=== PATIENT | male | born 1945 | race African-American/Black ===

== ENCOUNTER 2016-10-31 12:41 | Inpatient (IN) | payer OTHER ==
[~2016-10-31] VITALS: Ht 180.3 cm; Wt 122.5 kg
--- NOTE | ~2016-10-31 | EKG ---
[address] [place] [address] ELECTROCARDIOGRAM REPORT Name: YUMIKO SANTORO Room #: 303-P ADM IN M.R.#: [id number] Admission: 10/31/16 Attend Phys: Law Tamayo MD Discharge: Date of : 43 Report #: [id number] THIS REPORT FOR: //name// [facility] Test Date: 2016-11-01 Test Time: 17:55:49 Pat Name: YUMIKO SANTORO Department: Room: 303 P Gender: M Vice President Of Compliance: JOSE : 1945 Requested By: Law Tamayo Order Number: [id number] MD: Sachin Lockhart Measurements Intervals [place] Rate: 127 P: -16 GA: 127 QRS: -40 QRSD: 89 T: 65 QT: 340 QTc: 495 Interpretive Statements Probable atrial flutter with 2-1 AV conduction Abnormal R-wave progression, late transition Nonspecific ST and T wave abnormality Baseline wander in lead(s) I,II,aVR,V6 No previous ECGs available for comparison Electronically Signed On 11-02-2016 13:53:39 CDT by Sachin Lockhart [email or web address] <ELECTRONICALLY SIGNED> By: Sachin Lockhart MD, [facility] 11/02/16 1353 1755 1755 Sachin Lockhart MD, [facility] /EPI
--- NOTE | ~2016-10-31 | HC ---
[facility] [place] [address] CONSULTATION Name: YUMIKO SANTORO Room #: 303-P [facility] IN .R.#: [id number] Admission: 10/31/16 Attend Phys: Law Tamayo MD Discharge: 11/03/16 Date of : 43 Report #: [id number] THIS REPORT FOR: //name// CC: Maykel Tamayo REASON FOR CONSULTATION: Atrial flutter. HISTORY OF PRESENT ILLNESS: The patient is a 71-year-old gentleman with a history of coronary disease with remote stenting. He has a history of brain tumor with prior radiation therapy, hypertension and prior strokes. He is confined predominantly to a wheelchair. He had eater breakfast yesterday when his daughter noted a heart rate in the 120 range. She gave him a nitroglycerin, it is not clear if this did any thinning. He has had intermittent left-sided chest discomfort that will last for a minute or two, this may be related to or associated with a high ventricular response. He denies orthopnea or paroxysmal nocturnal dyspnea. Typically, sees Dr. Lopes at for his cardiology needs. He has been maintained on warfarin presumably for his history of atrial dysrhythmias. No history of near syncope or syncope. We should note that there are notes that suggest that the patient has had recent hemoptysis. ALLERGIES: Allergic to STATIN medicines. MEDICATIONS: Include warfarin 5 mg daily, colchicine, Zetia 10 mg daily, amlodipine 2.5 mg daily, allopurinol 100 mg daily, metformin 500 mg twice daily, Welchol 3 tablets twice daily, fenofibrate and prednisone. PAST MEDICAL HISTORY: Medical records have been reviewed and include history of coronary disease with remote stenting, brain tumor, hypertension, dyslipidemia, diabetes. SOCIAL HISTORY: He has never been a smoker, nondrinker. FAMILY HISTORY: Unremarkable for premature coronary disease. REVIEW OF SYSTEMS: All systems negative except as that noted above. PHYSICAL EXAMINATION: GENERAL: A pleasant gentleman who is alert. VITAL SIGNS: Blood pressure is 150/108, heart rate of 110 and irregular, temperature is 99.1 degrees, weight is 270 pounds, 5 feet 11 inches tall. HEENT: There are neither xanthelasma, subcutaneous xanthomata, oral mucosal or digital cyanosis or kyphoscoliosis present. CHEST: Clear to auscultation and percussion. CARDIOVASCULAR: An irregularly irregular rhythm with normal S1, S2. ABDOMEN: Soft and nontender. [facility] [address] [place] [address] CONSULTATION Name: YUMIKO SANTORO Room #: 303-P [facility] IN .R.#: [id number] Admission: 10/31/16 Attend Phys: Law Tamayo MD Discharge: 11/03/16 Date of : 43 Report #: [id number] EXTREMITIES: With trace to 1+ edema. Radial pulses are 2+. NEUROLOGIC: Alert with focal weakness. LABORATORY DATA: EKG, atrial flutter with 2:1 AV condition, otherwise acute ST or T-wave changes. Sodium 142, creatinine 1.0. Troponin 0.10. Troponins have remained minimally but nondiagnostically elevated. Magnesium 1.4. INR 2.2. Hemoglobin 12, white count 6.0, platelet count 110. IMPRESSION: 1. Chest pain, possibly related to atrial flutter with a rapid ventricular response in the setting of aspiration pneumonia. 2. Atrial flutter. 3. History of aspiration, community acquired pneumonia. 4. Coronary disease with remote stenting. 5. Hypertension. 6. Brain tumor, malignant with prior radiation therapy. 7. Hypercoagulable. 8. Prior stroke. RECOMMENDATIONS: 1. Advance lisinopril for blood pressure. 2. Change amlodipine to Cardizem for added heart rate control. 3. Clarify details regarding brain tumor diagnosis and prior treatment. 4. At this point, I would recommend medical therapy for possible underlying coronary artery disease until the above-noted issues can be sorted out. My suspicious is that his intermittent chest discomfort is not related to angina or unstable ischemic type symptomatology. <ELECTRONICALLY SIGNED> By: Sachin Lockhart MD, [facility] 11/04/16 0842 1025 1137 Scahin Lockhart MD, [facility] /nt
--- NOTE | ~2016-10-31 | EKG ---
[place] [address] [place] [address] ELECTROCARDIOGRAM REPORT Name: YUMIKO SANTORO Room #: 303-P ADM IN M.R.#: [id number] Admission: 10/31/16 Attend Phys: Law Tamayo MD Discharge: Date of : 43 Report #: [id number] THIS REPORT FOR: //name// [facility] ED Test Date: 2016-10-31 Test Time: 12:46:33 Pat Name: YUMIKO SANTORO Department: Room: 303 Gender: M Business Support Assistant: JOSE CARLOS : 1945 Requested By: Joaquín Reeder Order Number: [id number] MD: Sachin Lockhart Measurements Intervals [place] Rate: 55 P: 1 CT: 208 QRS: 5 QRSD: 95 T: 252 QT: 423 QTc: 405 Interpretive Statements Sinus rhythm Atrial premature complexes Probable LVH with secondary repol abnrm Nonspecific ST and T wave abnormality Compared to ECG 08/05/2009 17:26:33 Atrial premature complex(es) now present Nonspecific change in the ST and T-wave segments Electronically Signed On 11-01-2016 9:50:53 CDT by Sachin Lockhart [email or web address] <ELECTRONICALLY SIGNED> By: Sachin Lockhart MD, [facility] 11/01/16 0950 1246 1246 Sachin Lockhart MD, [facility] /EPI
[~2016-10-31 12:41] MED LIST: ALLOPURINOL 10100 M1 PO; COLCHICINE 0.60.6 M1 PO; COUMADIN 5 MG TA5 M1 PO; DAILY VALUE1 EACH PO; EZETIMIBE PO; FISHOIL PO; GLUCOPHAGE500 MG PO; HYZAAR 100-251 EACH PO; MELATONIN5 M2; NORVASC 2.5 MG2.5 M1 PO; PREDNISONE 10 M10 M1; TRICOR48 MG PO; WELCHOL 625 MG625 MG PO
[2016-10-31 12:42] VITALS: BP 115/77
[2016-10-31 13:25] LABS: ABSOLUTE NEUTROPHILS 3.6 thou/uL (1.4-8.2); BASOPHILS 0.3 % (0.0-2.0); HEMATOCRIT 37.3 % (42.0-52.0); LYMPHOCYTES 24.3 % (24.0-44.0); MCH 27.6 pg (26.0-34.0); MCHC 32.2 g/dL (28.0-37.0); MCV 85.9 fL (80.0-100.0); MONOCYTES 4.7 % (1.0-8.0); PLATELET COUNT 114 thou/uL (150-400); POLYS 69.7 % (36.0-66.0); RBC 4.35 mil/uL (4.50-6.00); RDW 17.1 % (10.5-14.5); WBC 5.2 thou/uL (4.0-11.0)
[2016-10-31 13:26] LABS: MANUAL DIFF NO
[2016-10-31 13:38] LABS: PROTIME 19.9 Seconds (9.3-11.4)
[2016-10-31 13:46] LABS: ANION GAP 5 mmol/L (7-16); BUN 22 mg/dL (7-18); CHLORIDE 105 mmol/L (98-107); CO2 34 mmol/L (21-32); GLUCOSE 126 mg/dL (74-106); MAGNESIUM 1.7 mg/dL (1.8-2.4); SODIUM 144 mmol/L (136-145); TROPONIN-I < 0.04 ng/mL (<0.04-0.07)
[2016-10-31] MEDS ORDERED: TOPROL XL100 MG PO (14:00)
[2016-10-31] MEDS ORDERED: CARDURA4 MG PO (14:01)
[2016-10-31] MEDS ORDERED: VITAMIN D1000 UNI1 PO (14:01)
[2016-10-31] MEDS ORDERED: LISINOPRIL20 MG PO (14:02)
[2016-10-31] MEDS ORDERED: PROSCAR 5MG TABL5 M1 PO (14:03)
[2016-10-31] MEDS ORDERED: COUMADIN 5 MG TA5 M1 PO (14:03)
[2016-10-31] MEDS ORDERED: COLACE100 MG PO (14:04)
[2016-10-31] MEDS ORDERED: LASIX 20 MG TAB20 MG PO (14:05)
[2016-10-31 15:47] VITALS: BP 115/77
[2016-10-31 17:15] VITALS: BP 134/86
[2016-10-31 17:45] VITALS: BP 153/101
[2016-10-31 19:30] VITALS: BP 164/89
[2016-10-31 23:35] VITALS: BP 142/99
[2016-11-01 03:50] VITALS: BP 160/107
[2016-11-01 04:26] LABS: CALCIUM 9.1 mg/dL (8.5-10.1); CREATININE 0.9 mg/dL (0.7-1.3); MAGNESIUM 1.6 mg/dL (1.8-2.4); POTASSIUM 4.4 mmol/L (3.5-5.1)
[2016-11-01 04:29] LABS: ABSOLUTE NEUTROPHILS 3.7 thou/uL (1.4-8.2); BASOPHILS 0.3 % (0.0-2.0); HEMATOCRIT 36.7 % (42.0-52.0); MCHC 32.6 g/dL (28.0-37.0); MCV 85.9 fL (80.0-100.0); MONOCYTES 6.6 % (1.0-8.0); PLATELET COUNT 110 thou/uL (150-400); POLYS 62.1 % (36.0-66.0); RBC 4.27 mil/uL (4.50-6.00)
[2016-11-01 04:31] LABS: MANUAL DIFF NO
[2016-11-01 05:10] VITALS: BP 163/103
[2016-11-01 08:00] VITALS: BP 159/91
[2016-11-01 11:31] LABS: URINE BILIRUBIN NEGATIVE (Negative); URINE BLOOD NEGATIVE (Negative); URINE COLOR YELLOW; URINE GLUCOSE-RANDOM* NEGATIVE (Negative); URINE KETONES NEGATIVE (Negative); URINE LEUKOCYTES-REFLEX NEGATIVE (Negative); URINE PROTEIN (DIPSTICK) 1+ (Negative); URINE SPECIFIC GRAVITY 1.015 (1.003-1.035)
[2016-11-01 11:43] LABS: CASTS None Seen /LPF (None Seen); CRYSTALS None Seen /LPF (None Seen); SQUAMOUS 0-3 Few /LPF (0-3); URINE RBC None Seen /HPF (0-2); URINE WBC-REFLEX None Seen /HPF (0-5)
[2016-11-01 14:38] LABS: INR 2.2; PROTIME 22.1 Seconds (9.3-11.4)
[2016-11-01 16:00] VITALS: BP 144/80
[2016-11-01 18:25] LABS: CALCIUM 9.1 mg/dL (8.5-10.1); POTASSIUM 4.2 mmol/L (3.5-5.1)
[2016-11-01 18:26] LABS: MAGNESIUM 1.5 mg/dL (1.8-2.4)
[2016-11-01 18:34] LABS: TROPONIN-I 0.05 ng/mL (<0.04-0.07)
[2016-11-01 19:05] VITALS: BP 150/89
[2016-11-02 00:41] LABS: MAGNESIUM 1.5 mg/dL (1.8-2.4); TROPONIN-I 0.1 ng/mL (<0.04-0.07)
[2016-11-02 04:00] VITALS: BP 171/121
[2016-11-02] MEDS ORDERED: ALL DAY ALLERGY10 M2 PO (07:36)
[2016-11-02 08:10] VITALS: BP 150/108
[2016-11-02 11:55] LABS: INR 2.1; PROTIME 21.5 Seconds (9.3-11.4)
[2016-11-02 12:04] VITALS: BP 118/83
[2016-11-02 13:33] VITALS: BP 118/83
[2016-11-02 15:10] VITALS: BP 102/63
[2016-11-02 19:11] VITALS: BP 103/62
[2016-11-03 04:08] VITALS: BP 138/92
[2016-11-03 04:42] LABS: HEMATOCRIT 39.2 % (42.0-52.0); HEMOGLOBIN 12.3 gm/dL (14.0-18.0); MCH 27.4 pg (26.0-34.0); MCHC 31.4 g/dL (28.0-37.0); MCV 87.2 fL (80.0-100.0); RBC 4.49 mil/uL (4.50-6.00); WBC 6.9 thou/uL (4.0-11.0)
[2016-11-03 04:53] LABS: INR 1.9
[2016-11-03 05:00] LABS: CALCIUM 9.1 mg/dL (8.5-10.1); CREATININE 1.2 mg/dL (0.7-1.3); POTASSIUM 4.3 mmol/L (3.5-5.1)
[2016-11-03 08:00] VITALS: BP 123/75
[2016-11-03 16:00] VITALS: BP 125/65
[2016-11-03] MEDS ORDERED: AUGMENTIN 875875 MG PO (16:36)
[2016-11-03 16:39] VITALS: BP 125/65
[2016-11-03] MEDS ORDERED: CARDIZEM CD180 MG PO (16:40)
[2016-11-03 17:00] VITALS: BP 125/65
== END 2016-11-03 20:12 | disposition home health service (06) | DRG 193 ==
LOC: ER 12:41 → 3N 15:33 → EROBS 15:33 → 3N 17:17
PROVIDERS: Emergency Medicine; Hospitalist; Nurse Practitioner; Nurse Practitioner Family
DX: J18.9 Pneumonia, unspecified organism (principal); I50.33 Acute on chronic diastolic (congestive) heart failure; I48.92 Unspecified atrial flutter; D68.59 Other primary thrombophilia; I10 Essential (primary) hypertension; E78.00 Pure hypercholesterolemia, unspecified; I25.10 Atherosclerotic heart disease of native coronary artery without angina pectoris; E78.5 Hyperlipidemia, unspecified; I48.0 Paroxysmal atrial fibrillation; E83.42 Hypomagnesemia; Z86.73 Personal history of transient ischemic attack (TIA), and cerebral infarction without residual deficits; Z88.8 Allergy status to other drugs, medicaments and biological substances; Z95.5 Presence of coronary angioplasty implant and graft
CPT/HCPCS: 10096

== ENCOUNTER 2019-01-01 13:35 | Inpatient (IN) | payer OTHER ==
[2019-01-01] VITALS (9 sets, daily range): BP systolic 118–224; BP diastolic 72–135
[~2019-01-01] VITALS: Ht 180.3 cm; Wt 112.7 kg
[~2019-01-01 13:35] MED LIST changes: +ALL DAY ALLERGY10 M2 PO; +AUGMENTIN 875875 MG PO; +CARDIZEM CD180 MG PO; +CARDURA4 MG PO; +COLACE100 MG PO; +FISH OIL 1,001000 M2 PO; -FISHOIL PO; +LASIX 20 MG TAB20 MG PO; +LISINOPRIL20 MG PO; +PROSCAR 5MG TABL5 M1 PO; +TOPROL XL100 MG PO; +VITAMIN D1000 UNI1 PO; +VITAMIN D2000 UNIT PO
[2019-01-01 14:48] LABS: BASOPHILS 0.3 % (0.0-2.0); EOSINOPHILS 0.2 % (0.0-3.0); HEMATOCRIT 37.2 % (42.0-52.0); HEMOGLOBIN 11.8 gm/dL (14.0-18.0); LYMPHOCYTES 19.4 % (24.0-44.0); MCH 27.4 pg (26.0-34.0); MCHC 31.7 g/dL (28.0-37.0); MCV 86.5 fL (80.0-100.0); MONOCYTES 7.3 % (1.0-8.0); PLATELET COUNT 192 thou/uL (150-400); POLYS 72.8 % (36.0-66.0); RDW 15.7 % (10.5-14.5); WBC 8.3 thou/uL (4.0-11.0)
[2019-01-01 14:52] LABS: URINE BILIRUBIN NEGATIVE (Negative); URINE BLOOD TRACE (Negative); URINE CLARITY CLEAR; URINE COLOR YELLOW; URINE GLUCOSE-RANDOM* NEGATIVE (Negative); URINE KETONES NEGATIVE (Negative); URINE LEUKOCYTES-REFLEX NEGATIVE (Negative); URINE NITRITE-REFLEX NEGATIVE (Negative); URINE PROTEIN (DIPSTICK) 2+ (Negative); URINE SPECIFIC GRAVITY 1.025 (1.005-1.035)
[2019-01-01 14:58] LABS: ANION GAP 5 mmol/L (7-16); BUN 16 mg/dL (7-18); CALCIUM 9.2 mg/dL (8.5-10.1); CHLORIDE 102 mmol/L (98-107); CO2 34 mmol/L (21-32); CREATININE 0.9 mg/dL (0.7-1.3); GLUCOSE 105 mg/dL (74-106); SODIUM 141 mmol/L (136-145)
[2019-01-01 15:03] LABS: BACTERIA-REFLEX None Seen /HPF (None Seen); CRYSTALS None Seen /LPF (None Seen); HYALINE CASTS 4-10 Moderate /LPF (None Seen); MUCUS >6 Heavy strn/LPF (None Seen); SQUAMOUS 0-3 Few /LPF (0-3); URINE RBC 0-2 Rare /HPF (0-2); URINE WBC-REFLEX 0-5 Rare /HPF (0-5)
[2019-01-01 15:09] LABS: ALBUMIN 3.3 g/dL (3.4-5.0); DIRECT BILIRUBIN 0.2 mg/dL (<0.1-0.3); SGOT 21 U/L (15-37); SGPT 21 U/L (30-65); TOTAL BILIRUBIN 0.8 mg/dL (<0.1-1.0); TOTAL PROTEIN 8.6 g/dL (6.4-8.2); TROPONIN-I <0.06 ng/mL (<0.06)
[2019-01-01 15:44] LABS: BE(vivo) 3.3 mmol/L (-2 to +3); PCO2 48.5 mmHg (35.0-45.0); PO2 67.3 mmHg (80.0-100.0); pH 7.394 (7.360-7.450); sO2 93.1 % (92.0-98.0)
[2019-01-01 17:39] LABS: INR 2.6; PROTIME 27.3 Seconds (9.3-11.4)
[2019-01-01] MEDS ORDERED: COLACE100 MG PO (18:42)
[2019-01-01 20:22] LABS: ALBUMIN 3.4 g/dL (3.4-5.0); TOTAL PROTEIN 8.7 g/dL (6.4-8.2)
[2019-01-01] MEDS ORDERED: LIPITOR10 MG PO (20:41)
[2019-01-01] MEDS ORDERED: FLONASE 0.05%50 MCG NARES (20:41)
[2019-01-01 20:48] LABS: TSH 1.027 uIU/mL (0.358-3.740)
[2019-01-01 21:46] LABS: INR 2.5; PROTIME 26.3 Seconds (9.3-11.4)
[2019-01-02] VITALS (8 sets, daily range): BP systolic 95–157; BP diastolic 62–109
--- NOTE | 2019-01-02 02:59 | NUR ---
PT ADMITTED FROM ER. FAMILY AT BEDSIDE. PT EXTREMELY LETHERGIC AND WITHDRAWN. DENIES PAIN. PT HAD ELEVATED BP 224/125, HR >110. HEALTH CENTER MANAGER NOTIFIED. HYDRALAZINE, LOPRESSOR, TYLENOL GIVEN. PT DENIES CHEST PAIN, NAUSEA,AND VOMITING. FREQUEST BM MOVEMENTS, FOR SLIMMY MUCOUSY STOOL. PT ON ISOLATION FOR C-DIFF. PT IS CHAIRBOUND WITH LEFT SIDED WEAKNESS. FREQUENT URINATION AND ON LASIX. CONDOM CATHETER APPLIED. OUTPUT MONITORED. EDEMA IN THE LE WITH WEAK PULSE. PT DENIES NUMBNESS OR TINGLING.PT CURRENT PP 152/109. WILL CONTINUE TO FOLLOW POC
[2019-01-02 05:04] LABS: HEMATOCRIT 36.1 % (42.0-52.0); HEMOGLOBIN 11.4 gm/dL (14.0-18.0); MCH 27.4 pg (26.0-34.0); MCHC 31.5 g/dL (28.0-37.0); RBC 4.15 mil/uL (4.50-6.00); RDW 15.7 % (10.5-14.5); WBC 10.1 thou/uL (4.0-11.0)
[2019-01-02 05:06] LABS: INR 2.5; PROTIME 26.1 Seconds (9.3-11.4)
[2019-01-02 05:16] LABS: ANION GAP 7 mmol/L (7-16); BUN 14 mg/dL (7-18); CALCIUM 8.9 mg/dL (8.5-10.1); CHLORIDE 103 mmol/L (98-107); CHOLESTEROL 119 mg/dL (<200); CO2 34 mmol/L (21-32); CREATININE 0.8 mg/dL (0.7-1.3); GLUCOSE 110 mg/dL (74-106); HDL CHOLESTEROL 43 mg/dL (>40); LDL CHOLESTEROL 64 mg/dL (<100); MAGNESIUM 1.5 mg/dL (1.8-2.4); POTASSIUM 3.1 mmol/L (3.5-5.1); SODIUM 144 mmol/L (136-145); TC:HDL 2.8 Ratio (Not establshd); TRIGLYCERIDE 64 mg/dL (<150); VLDL 13 mg/dL (<40)
[2019-01-02 05:18] LABS: SERUM ASSESSMENT Clear
--- NOTE | 2019-01-02 17:55 | NUR ---
ASSUMED CARE AT 0700, SHIFT ASSESSMENT DONE, MEDS GIVEN, VSS. DENIES PAIN, NAUSEA, VOMITING. BED BOUND, RECEIVING IV ANTITBIOTICS. ON 4L NC. WILL CONTINUE TO ASSESS AND ASSIST WITH ADLs NEEDED.
[2019-01-03 00:56] VITALS: BP 102/72
[2019-01-03 03:28] VITALS: BP 113/69
[2019-01-03 05:48] LABS: HEMATOCRIT 32.9 % (42.0-52.0); HEMOGLOBIN 10.4 gm/dL (14.0-18.0); MCH 27.5 pg (26.0-34.0); MCHC 31.7 g/dL (28.0-37.0); MCV 86.9 fL (80.0-100.0); RBC 3.78 mil/uL (4.50-6.00); RDW 16.2 % (10.5-14.5); WBC 7.1 thou/uL (4.0-11.0)
[2019-01-03 05:56] LABS: INR 2.1; PROTIME 21.9 Seconds (9.3-11.4)
[2019-01-03 06:00] LABS: CALCIUM 8.4 mg/dL (8.5-10.1); CREATININE 1.1 mg/dL (0.7-1.3); MAGNESIUM 1.8 mg/dL (1.8-2.4); POTASSIUM 3.3 mmol/L (3.5-5.1)
[2019-01-03 07:37] VITALS: BP 123/85
--- NOTE | 2019-01-03 07:52 | NUR ---
PT PLEASANT WHOLE NIGHT. NO CHEST PAIN REPORTED. DENIES NAUSEA AND VOMITING. HAD 2 SOFT BOWEL MOVEMENTS. WILL CONTINUE TO MONITOR.
--- NOTE | 2019-01-03 09:39 | 2DMMODE ---
[facility] [address] [place] [address] 2 D/M-MODE ECHOCARDIOGRAM Name: YUMIKO SANTORO Room #: 217-P ADM IN M.R.#: [id number] Admission: 01/01/19 Attend Phys: Abran Day, Discharge: Date of : 43 Report #: [id number] THIS REPORT FOR: //name// APPROVED REPORT Study performed: 01/03/2019 08:24:11 EXAM: Comprehensive 2D, Doppler, and color-flow Echocardiogram Patient Location: Bedside Room #: 217 Status: routine BSA: 2.31 HR: 83 bpm BP: 113/69 mmHg Rhythm: Atrial Flutter Other Information Study Quality: Good Indications Congestive Heart Failure Dyspnea CAD Hypertension/HDD Atrial flutter 2D Dimensions RVDd: 42.18 mm IVSd: 17.66 (7-11mm) LVOT Diam: 22.24 (18-24mm) LVDd: 37.50 mm PWd: 15.85 (7-11mm) Ascending Ao: 36.03 (22-36mm) LVDs: 25.67 (25-40mm) Aortic Root: 34.60 mm IVC: 33.00 mm Volumes Left Atrial Volume (Systole) Single Plane 4CH: 134.16 mL Single Plane 2CH: 81.72 mL LA ESV Index: 49.00 mL/m2 Aortic Valve AoV Peak Gabriel.: 1.39 m/s AO Peak Gr.: 7.73 mmHg LVOT Max P.40 mmHg LVOT Max V: 1.36 m/s MONALISA Vmax: 3.80 cm2 [facility] [address] [place] [address] 2 D/M-MODE ECHOCARDIOGRAM Name: YUMIKO SANTORO Room #: 217-P [facility] IN [facility]#: [id number] Admission: 01/01/19 Attend Phys: Abran Day, Discharge: Date of : 43 Report #: [id number] Pulmonary Valve PV Peak Gabriel.: 1.02 m/s PV Peak Gr.: 4.24 mmHg Tricuspid Valve TR Peak Gabriel.: 2.93 m/s TR Peak Gr.: 34.45 mmHg PA Pressure: 49.00 mmHg Left Ventricle The left ventricle is normal size. There is normal LV segmental wall motion. Moderate concentric left ventricular hypertrophy. The left ventricular systolic function is normal. The left ventricular ejection fraction is within the normal range. LVEF is 60-65%. This study is not technically sufficient to allow evaluation of the LV diastolic function due to atrial flutter. Right Ventricle The right ventricle is normal size. The right ventricular systolic function is normal. Atria Left atrium is dilated. Right atrium is dilated. Aortic Valve Aortic valve is bicuspid. No aortic regurgitation is present. There is no aortic valvular stenosis. Mitral Valve The mitral valve is normal in structure. Mild mitral regurgitation. No evidence of mitral valve stenosis. Tricuspid Valve The tricuspid valve is normal in structure. There is mild tricuspid regurgitation. Estimated PAP 49 mmHg. There is moderate pulmonary hypertension. Pulmonic Valve The pulmonary valve is normal in structure. Trace pulmonic regurgitation. Great Vessels The aortic root is normal in size. The inferior vena cava is dilated with no inspiratory collapse. Pericardium There is no pericardial effusion. [facility] [address] [place] [address] 2 D/M-MODE ECHOCARDIOGRAM Name: YUMIKO SANTORO Room #: 217-P [facility] IN .R.#: [id number] Admission: 01/01/19 Attend Phys: Abran Day, Discharge: Date of : 43 Report #: [id number] <Conclusion> The left ventricle is normal size. LVEF is 60-65%. Left atrium is dilated. Right atrium is dilated. Aortic valve is bicuspid. No aortic regurgitation is present. There is no aortic valvular stenosis. The mitral valve is normal in structure. Mild mitral regurgitation. The tricuspid valve is normal in structure. There is mild tricuspid regurgitation. Estimated PAP 49 mmHg. There is moderate pulmonary hypertension. The pulmonary valve is normal in structure. Trace pulmonic regurgitation. There is no pericardial effusion. <ELECTRONICALLY SIGNED> By: Jb Lee MD 01/03/19 0939 8 Jb Lee MD /INF
--- NOTE | 2019-01-03 12:25 | NUR ---
ASSUMED CARE AT 0700, SHIFT ASSESSMENT DONE, MEDS GIVEN, VSS. DENIES PAIN, NAUSEA, VOMITING. WORKED WITH PHYSICAL AND OCCUPATIONAL THERAPHY. MALE CATHETER CHANGED. WILL CONTINUE TO ASSESS AND ASSIST WITH ADLs NEEDED.
--- NOTE | 2019-01-03 13:56 | NUR ---
met with patient who was sleeping. he admits with CHF exacerbation. patient resides at home in independent home. [employer] he uses a motorized wc. He needs assist with transfers. Dtr reports caretakers throughout the day to assist. patient does not use oxygen at home and currently on 4 Liters. Patient has rec HH in past but dtr cannot recall agencies. She reports patient has been at [facility] in the past. Dtr agreeable to referral to [facility].
--- NOTE | 2019-01-03 14:01 | NUR ---
zoie sent initial referral to [facility]. Patient likely to dc in a couple of days.
--- NOTE | 2019-01-03 14:13 | NUR ---
Assess for low lucy score. Pt admit with CHF exacerbation. 3+ bilateral ankle edema, limited mobility. Has heart healthy diet ordered and does not eat red meat or pork. Intake very good since admit. Low nutrition risk
[2019-01-03 15:31] VITALS: BP 115/74
--- NOTE | 2019-01-03 17:13 | EKG ---
[place] [address] [address] [place] [address] ELECTROCARDIOGRAM REPORT Name: YUMIKO SANTORO Room #: 217-P ADM IN M.R.#: [id number] Admission: 01/01/19 Attend Phys: Abran Day MD Discharge: Date of : 43 Report #: [id number] THIS REPORT FOR: //name// [facility] Test Date: 2019-01-03 Test Time: 09:00:27 Pat Name: YUMIKO SANTORO Department: Room: 217 P Gender: M Cover Stitch Machine Operator: Carlo ROMERO : 1945 Requested By: Fili Sams Order Number: [id number] MD: Sachin Lockhart Measurements Intervals [place] Rate: 85 P: [place]: QRS: -29 QRSD: 96 T: 59 QT: 427 QTc: 508 Interpretive Statements Atrial fibrillation Ventricular premature complex Nonspecific ST and T wave abnormality Compared to ECG 07/27/2017 16:57:31 Atrial fibrillation has replaced sinus bradycardia Electronically Signed On 01-03-2019 17:13:42 CDT by Sachin Lockhart [email or web address] <ELECTRONICALLY SIGNED> By: Sachin Lockhart MD, [facility] 01/03/19 1713 9 9 Sachin Lockhart MD, [facility] /EPI
[2019-01-03 20:15] VITALS: BP 120/56; BP 134/79
[2019-01-04 01:41] VITALS: BP 134/79
--- NOTE | 2019-01-04 02:38 | NUR ---
ASSESSMENT CHARTED. VSS. PT DENIES CONCERN. Q2 TURNS. EX HUTCHINS IN PLACE. ABX PER EMAR. X2 SMALL BMS INCONTINENT. BARRIER CREAM APPLIED. WILL CONTINUE TO MONITOR AND WITH POC.
[2019-01-04 04:54] LABS: PROTIME 20.9 Seconds (9.3-11.4)
[2019-01-04 04:55] VITALS: BP 145/88
[2019-01-04 04:57] LABS: CALCIUM 8.7 mg/dL (8.5-10.1); CREATININE 0.9 mg/dL (0.7-1.3); MAGNESIUM 1.9 mg/dL (1.8-2.4); POTASSIUM 3.2 mmol/L (3.5-5.1)
[2019-01-04 05:41] LABS: HEMATOCRIT 31.1 % (42.0-52.0); HEMOGLOBIN 9.9 gm/dL (14.0-18.0); MCH 27.6 pg (26.0-34.0); MCHC 31.8 g/dL (28.0-37.0); MCV 86.9 fL (80.0-100.0); RBC 3.58 mil/uL (4.50-6.00); RDW 15.9 % (10.5-14.5)
[2019-01-04 07:26] VITALS: BP 144/76
--- NOTE | 2019-01-04 10:07 | NUR ---
DP F/U WITH [facility] SPOKE WITH MARYJANE IN ADM SHE RECEIVED REFERRAL AND CAN ACCEPT BUT THEY DO NOT HAVE A BED TIL THURSDAY AT THE EARLIEST. DP TO FOLLOW.
[2019-01-04 11:21] VITALS: BP 144/82
--- NOTE | 2019-01-04 11:54 | NUR ---
spoke with dtr regarding [facility]. Left list of post acute care facilities for review. Dtr reports she updates her brother. Discussed post acute care with patient. He is in agreement referral to [facility] for review.
--- NOTE | 2019-01-04 12:52 | NUR ---
FAXED REFERRAL TO [facility] SPOKE WITH SARITA IN ADM SHE RECEIVED REFERRAL AND WILL REVIEW. DP TO FOLLOW.
[2019-01-04 15:37] VITALS: BP 129/70
[2019-01-04 19:58] VITALS: BP 148/83
[2019-01-05] VITALS (7 sets, daily range): BP systolic 136–149; BP diastolic 83–106
--- NOTE | 2019-01-05 03:54 | NUR ---
ASSESSMENT CHARTED. VSS. PT STATES NO COMPLAINTS. Q2 TURNS. INCONTINENT BOWEL [address]OOL. EXTERNAL CATH IN PLACE DRAINING WELL. ABX PER EMAR. POTASSIUM PO CUT PT TOLERATED WELL WITH APPLE SAUCE. WILL CONTINUE TO MONITOR AND WITH OC.
[2019-01-05 05:29] LABS: HEMATOCRIT 31.5 % (42.0-52.0); HEMOGLOBIN 9.9 gm/dL (14.0-18.0); MCH 27.3 pg (26.0-34.0); MCHC 31.4 g/dL (28.0-37.0); RBC 3.62 mil/uL (4.50-6.00); RDW 15.6 % (10.5-14.5); WBC 5.3 thou/uL (4.0-11.0)
[2019-01-05 05:42] LABS: CALCIUM 8.8 mg/dL (8.5-10.1); CREATININE 0.8 mg/dL (0.7-1.3); MAGNESIUM 1.9 mg/dL (1.8-2.4); POTASSIUM 3.4 mmol/L (3.5-5.1)
--- NOTE | 2019-01-05 12:14 | NUR ---
[facility] beds avail and [facility] also full. Sp with dtr she will review list and alert casemgt of a facility. She reports phys alerted planned dc Thursday.
--- NOTE | 2019-01-05 19:19 | NUR ---
Patient AOX2-3 and forgetful at times. He had 4 small mucousy BM's today. No skin breakdown. Patient turned every 2 hours. He rested comfortably most of the day. He ate well and complained of no pain. Family at bedside this evening asking for CM. They were gone for the day. Family is very concerned about the mucousy bowels and have not received an answer from physicians. Plan is for patient to discharge to rehab facility before eventually going home.
[2019-01-06 00:05] VITALS: BP 151/98
--- NOTE | 2019-01-06 03:37 | NUR ---
ASSUMED PT CARE AROUND 1900. PT DENIED ANY PAIN. PT SLEPT MOST OF THE NIGHT. RESP EVEN AND UNLABORED. O2 SATS STABLE ON 2L NC. VOIDING ADEQUATED VIA EXTERNAL MALE CATHETER. Q2H TURN TO PREVENT SKIN BREAKDOWN. EXTREMITIES ELEVATED ON PILLOWS. AFLUTTER ON TELE, RATED CONTROLLED. PT STATED HE IS HOPING TO GO HOME SOON. PROGRESSING SLOWLY TOWARD POC GOALS. WILL CONTINUE TO MONITOR FURTHER.
[2019-01-06 04:47] VITALS: BP 156/108
[2019-01-06 06:04] LABS: HEMATOCRIT 32.4 % (42.0-52.0); HEMOGLOBIN 10.2 gm/dL (14.0-18.0); MCH 27.5 pg (26.0-34.0); MCHC 31.5 g/dL (28.0-37.0); MCV 87.3 fL (80.0-100.0); RBC 3.71 mil/uL (4.50-6.00); RDW 16.1 % (10.5-14.5); WBC 5.8 thou/uL (4.0-11.0)
[2019-01-06 06:13] LABS: ALBUMIN 2.8 g/dL (3.4-5.0); CREATININE 0.7 mg/dL (0.7-1.3); POTASSIUM 3.7 mmol/L (3.5-5.1); TOTAL BILIRUBIN 0.7 mg/dL (<0.1-1.0); TOTAL PROTEIN 7.2 g/dL (6.4-8.2)
[2019-01-06 06:36] LABS: CALCIUM 8.7 mg/dL (8.5-10.1); MAGNESIUM 1.6 mg/dL (1.8-2.4)
[2019-01-06 08:40] VITALS: BP 159/96
--- NOTE | 2019-01-06 10:51 | NUR ---
FAXED REFERRAL TO [facility] SPOKE WITH ZAID IN ADM SHE RECEIVED REFERRAL AND WILL REVIEW. FAXED REFERRAL TO [facility] RECEIVED CONFIRMATION AND LEFT MSG WITH ALLEN IN ADM. FAXED REFERRAL TO [facility] SPOKE WITH ADAM IN ADM SHE RECEIVED REFERRAL AND CAN ACCEPT [place]. DP TO FOLLOW.
--- NOTE | 2019-01-06 11:30 | HC ---
[facility] [place] [address] CONSULTATION Name: YUMIKO SANTORO Room #: 217-P [facility] IN M.R.#: [id number] Admission: 01/01/19 Attend Phys: Abran Day MD Discharge: Date of : 43 Report #: [id number] THIS REPORT FOR: //name// CC: Maykel Day DATE OF SERVICE: 01/05/2019 ENDOCRINE CONSULTATION NOTE CONSULTING PHYSICIAN: Dr. Day. REASON FOR CONSULTATION: Thyroid nodule. HISTORY OF PRESENT ILLNESS: This is a 73-year-old male patient whose medical background is extensive and noted amongst other things for a history of CVA, CAD, brain tumor, hyperlipidemia, and heart failure. The patient was admitted on 01/01/2019 with complaints of fever and shortness of breath and was subsequently admitted for further care for acute hypoxic respiratory failure, heart failure, and cellulitis of the left lower extremity. In the setting of this care, the patient was evaluated with a number of modalities including a CT scan of the head, which accidentally identified a left-sided thyroid mass. This was verified further with a thyroid ultrasound, which will be detailed later. On further questioning, the patient denies having had a firm diagnosis of thyroid disease in the past. He has not had major difficulties with voice hoarseness or difficulty breathing, but notes that he would occasionally have swallowing difficulties in the morning that tend to ease up as the day goes on. The patient was never found to have thyroid dysfunction in the past that he recalls. He is not aware of any of his family members having had thyroid disease as well. REVIEW OF SYSTEMS: CONSTITUTIONAL: Fatigue, tiredness, fever, and chills, but not major weight changes. HEENT: Negative for sinus pain or ear drainage. PULMONARY: Shortness of breath and cough without hemoptysis. CARDIAC: Lower extremity edema, dyspnea on exertion, and orthopnea. No chest pain. GASTROINTESTINAL: Abdominal distention, abdominal discomfort, occasional nausea, and no vomiting. NEUROLOGY: Lightheadedness, dizziness, baseline right-sided weakness due to a prior CVA, but not seizure activity or loss of consciousness. PSYCHIATRIC: No delusions, hallucinations, or otherwise alterations in the level of consciousness. DERMATOLOGY: Negative for ulceration or rash, but noted for discoloration over [facility] [address] [place] [address] CONSULTATION Name: YUMIKO SANTORO Room #: 217-P [facility] IN M.R.#: [id number] Admission: 01/01/19 Attend Phys: Abran Day MD Discharge: Date of : 43 Report #: [id number] his left lower extremity. Otherwise, the review of systems is noncontributory other than those mentioned in HPI. PAST MEDICAL HISTORY: 1. CVA with right-sided hemiparesis. 2. CAD, status post [place]. 3. Brain tumor, status post resection. 4. Hyperlipidemia. 5. Heart failure. 6. Seasonal allergies. 7. Hypertension. 8. Atrial fibrillation. ALLERGIES: STATINS. OUTPATIENT MEDICATIONS: Include the Lasix 20 mg every other day, diltiazem 180 mg daily, cetirizine, fish oil, multivitamins, melatonin, Toprol-XL 100 mg b.i.d., Cardura 2 mg daily, lisinopril 20 mg daily, Proscar 5 mg every other day, Coumadin 5 mg daily, vitamin D3 2000 units daily, and Colace 100 mg b.i.d. FAMILY HISTORY: Noncontributory. SOCIAL HISTORY: The patient denies the use of tobacco, alcohol, or illicit drugs. PHYSICAL EXAMINATION: GENERAL: Pleasant elderly -Liberian male patient, who is not in apparent pain or distress. VITAL SIGNS: Blood pressure is 149/68, heart rate is 81 beats per minute, respirations 16 per minute, and temperature is 36.8 degrees. HEENT: Anicteric sclerae. Intact extraocular motions. NECK: Supple, without JVD, carotid bruits, or lymphadenopathy. Left thyroid bed fullness is appreciated, but is nontender. CHEST: Noted for moderate entry bilaterally with scattered rales, but no wheezes or crackles. HEART: Regular rate and rhythm without murmurs or gallops. ABDOMEN: Soft and lax without tenderness or organomegaly and has active bowel sounds. EXTREMITIES: Lower extremity exam is noted for edema bilaterally with the hyperemia and tenderness to the left lower extremity. NEUROLOGIC: Awake, alert, and oriented to time, place, and person. Right-sided eye ptosis is noted. Right-sided hemiparesis is noted. PSYCHIATRIC: Pleasant and interactive. Normal mood and affect. [address] [address] CONSULTATION Name: YUMIKO SANTORO Room #: 217-P ADM IN M.R.#: [id number] Admission: 01/01/19 Attend Phys: Abran Day MD Discharge: Date of : 43 Report #: [id number] LABORATORY RESULTS: Sodium 144, potassium is 3.4, chloride 104, CO2 is 36, anion gap 4, BUN 24, creatinine is 0.8, glucose is 95, AST 21, lipase 45, total bilirubin 0.8, direct bilirubin 0.2, calcium 8.8, phosphorus 3.4, magnesium 1.9, alkaline phosphatase 72, ALT 21, total protein 8.7, and GFR 115. Lactic acid 1.0. Troponin is negative. Total cholesterol 119, triglycerides 64, HDL 43, LDL is 64. BNP 2646. Free T4 of 1.0. INR of 2.0. White blood count is 5.3, hemoglobin 9.9, hematocrit 31.5, and platelets 179. TSH 1.027. Vitamin B12 527. A thyroid ultrasound was done and demonstrated a right-sided 2 mm cyst and a left-sided complex 2.3 x 2 x 1.8 cm nodule without calcifications. ASSESSMENT AND PLAN: 1. Thyroid nodule. As noted above, the patient was accidentally identified as having a left thyroid nodule. This is associated with a strictly normal thyroid function test panel. Furthermore, the patient is not symptomatic for this finding and denies compressive symptoms associated with this nodule. As per the thyroid ultrasound description, the nodule lies at the upper cut off of nodular size that would prompt a recommendation for an FNA and I believe to see that there is no description of worrisome features for malignancy such as calcifications or irregular borders. That said, I believe that we could certainly adequately cover the patient's needs by planning to monitor this again clinically and ultrasonography in 6 months from now. The patient, as well as his son who was present at the time of my interview, were counseled at length about these findings and these recommendations and they verbalized an understanding and agreement with this plan of care. 2. Hypertension. The patient's level of blood pressure control is adequate. Continue the current regimen. 3. Hyperlipidemia. The patient reports an ALLERGY TO A STATIN THERAPY, but seems that he tolerates atorvastatin well. If this becomes an issue in the future, consider adding ezetimibe. Given the termite exterminator nature of followup for this issue, I will sign off for the time being and would certainly be glad to answer to any questions or concerns regarding his care while he is in the hospital. The patient would be best served by an office followup in 6 months from now. <ELECTRONICALLY SIGNED> By: Pietro Huang MD 01/06/19 1130 1056 1918 Pietro Huang MD /nt
[2019-01-06 12:35] VITALS: BP 142/84
--- NOTE | 2019-01-06 16:18 | NUR ---
Melter [employer] visited with the pt and family at bedside this am to review snf listing and options. They are interested in [facility], [facility] and [facility]. Dc shoe planner faxed referrals to all three. [facility] can accept and has a bed for tomorrow. They also did an onsite eval and talked with family. [facility] can accept but we will have to check on bed availability once dc orders are completed. [facility] does not have any beds. Dtr Hortencia updated this evening. She indicates they would prefer [facility]) as their first choice. All parties updated and anticipating dc to snf tomorrow.
[2019-01-06 16:35] VITALS: BP 169/113
--- NOTE | 2019-01-06 18:23 | NUR ---
ASSESMENT DOCUMENTED, DENIES ANY PAIN. Q2 POSITIONED NEEDED FOR COMFORT. PROGRESSING TOWARD GOALS AND WILL CONTINUE WITH POC.
[2019-01-06 21:11] VITALS: BP 171/107
[2019-01-07 03:47] VITALS: BP 112/85
[2019-01-07 03:57] LABS: HEMATOCRIT 32.4 % (42.0-52.0); HEMOGLOBIN 10.3 gm/dL (14.0-18.0); MCH 27.3 pg (26.0-34.0); MCHC 31.8 g/dL (28.0-37.0); RBC 3.77 mil/uL (4.50-6.00); RDW 15.6 % (10.5-14.5); WBC 6.2 thou/uL (4.0-11.0)
[2019-01-07 04:05] LABS: CALCIUM 9.2 mg/dL (8.5-10.1); CREATININE 0.9 mg/dL (0.7-1.3); POTASSIUM 3.5 mmol/L (3.5-5.1)
--- NOTE | 2019-01-07 05:03 | NUR ---
ASSUMED PT CARE AT 1900. NO SIGN OF DISTRESS NOTED. NO FAMILY AT BEDSIDE. PT IS STABLE. LAYING IN BED. PT IS ALERT AND ORIENTED. ASSESSMENT COMPLETED AND DOCUMENTED. VITAL SIGNS STABLE WITH THE EXCEPTION OF HIGH BLOOD PRESSURE. MED ADMINISTERED. NO FURTHER NEEDS AT THIS TIME. PT TURN Q2H. DENIES ANY PAIN. NO FURTHER NEEDS AT THIS TIME.
[2019-01-07 07:36] VITALS: BP 170/97
[2019-01-07] MEDS ORDERED: ASPIR 8181 MG PO (10:44)
[2019-01-07] MEDS ORDERED: K-DUR 20 MEQ T20 MEQ PO (10:44)
[2019-01-07] MEDS ORDERED: PRINIVIL20 MG PO (10:44)
[2019-01-07] MEDS ORDERED: ALDACTONE50 MG PO (10:44)
[2019-01-07] MEDS ORDERED: TORSEMIDE20 MG PO (10:48)
[2019-01-07] MEDS ORDERED: AUGMENTIN 875-1 EACH PO (10:49)
[2019-01-07 11:30] VITALS: BP 119/81
--- NOTE | 2019-01-07 12:12 | NUR ---
Pt dcing to snf today. Dc menu planner has faxed the orders and confirmed with [facility]. They have a stretcher van coming at [phone]. Pt's dtr notified as well as the unit. Chart copy in progress. Nursing to call report.
--- NOTE | 2019-01-07 12:16 | NUR ---
PT DISCHARGING TODAY TO [facility] FAXED DC ORDERS/SUMMARY TO FACILITY SPOKE WITH ZAID IN ADM SHE RECEIVED DC ORDERS AND ARRANGED TRANSPORT BY BARIATRIC STRETCHER VAN AND 1L 02. NOTIFIED PT'S DTR (BARBARA) OF DC AND TIME OF TRANSPORT. UNIT NOTIFIED AND CHART COPY PER US. RN TO CALL REPORT TO [phone].
--- NOTE | 2019-01-07 12:52 | NUR ---
RECEIVED PT'S CARE AROUND 0730; PT. RESTING WITH EYES CLOSED ON BED; DURING ASSESSMENT PT. AOX4; NO C/O PAIN; DAUGHTER AT THE BED SIDE; REFUSED REPORSITION; EDUCATED ABOUT CALLING IF NEEDS TO BE REPOSITIONED & THE IMPORTANCE ABOUT IT; EDUCATED ABOUT THE GOALS THROUGH THE DAY; POSSIBLE D/C; [facility]; D/C AT 1300; CALLED REPORT;
== END 2019-01-07 13:20 | DRG 291 ==
LOC: ER 13:35 → EROBS 18:14 → 2N 18:14
PROVIDERS: Emergency Medicine; Hospitalist; Nurse Practitioner Family; ADMIT Internal Medicine
DX: I11.0 Hypertensive heart disease with heart failure (principal); J96.01 Acute respiratory failure with hypoxia; L03.116 Cellulitis of left lower limb; I48.21 Permanent atrial fibrillation; I48.92 Unspecified atrial flutter; G93.40 Encephalopathy, unspecified; I69.351 Hemiplegia and hemiparesis following cerebral infarction affecting right dominant side; I50.33 Acute on chronic diastolic (congestive) heart failure; E78.00 Pure hypercholesterolemia, unspecified; I25.10 Atherosclerotic heart disease of native coronary artery without angina pectoris; E78.5 Hyperlipidemia, unspecified; E04.1 Nontoxic single thyroid nodule; N28.9 Disorder of kidney and ureter, unspecified; N40.0 Benign prostatic hyperplasia without lower urinary tract symptoms; N28.1 Cyst of kidney, acquired; E87.6 Hypokalemia; I25.2 Old myocardial infarction; Z79.01 Long term (current) use of anticoagulants
CPT/HCPCS: 10081

== ENCOUNTER 2019-03-01 11:06 | Inpatient (IN) | payer OTHER ==
[~2019-03-01] VITALS: Ht 180.3 cm; Wt 104.5 kg
[~2019-03-01 11:06] MED LIST changes: +ALDACTONE50 MG PO; +ASPIR 8181 MG PO; +AUGMENTIN 875-1 EACH PO; +FLONASE 0.05%50 MCG NARES; +K-DUR 20 MEQ T20 MEQ PO; +LIPITOR10 MG PO; +PRINIVIL20 MG PO; +TORSEMIDE20 MG PO
[2019-03-01 11:09] VITALS: BP 102/56
[2019-03-01 12:23] LABS: ABSOLUTE NEUTROPHILS 3.5 thou/uL (1.4-8.2); BASOPHILS 0.5 % (0.0-2.0); EOSINOPHILS 0.8 % (0.0-3.0); HEMATOCRIT 36.6 % (42.0-52.0); HEMOGLOBIN 11.4 gm/dL (14.0-18.0); LYMPHOCYTES 29.9 % (24.0-44.0); MCH 26.8 pg (26.0-34.0); MCV 86.2 fL (80.0-100.0); MONOCYTES 7.1 % (1.0-8.0); PLATELET COUNT 154 thou/uL (150-400); POLYS 61.7 % (36.0-66.0); RBC 4.24 mil/uL (4.50-6.00); RDW 17.9 % (10.5-14.5); WBC 5.7 thou/uL (4.0-11.0)
[2019-03-01 12:41] LABS: CALCIUM 9.8 mg/dL (8.5-10.1); CREATININE 1.5 mg/dL (0.7-1.3)
[2019-03-01 12:42] LABS: POTASSIUM 7.4 mmol/L (3.5-5.1)
[2019-03-01 13:40] VITALS: BP 119/56
[2019-03-01 14:04] VITALS: BP 107/53
[2019-03-01 14:27] VITALS: BP 119/79
[2019-03-01 14:49] LABS: CALCIUM 9.7 mg/dL (8.5-10.1); CREATININE 1.5 mg/dL (0.7-1.3)
[2019-03-01 14:52] LABS: POTASSIUM 6.2 mmol/L (3.5-5.1)
[2019-03-01 14:56] LABS: INR 1.4; PROTIME 14.4 Seconds (9.3-11.4)
[2019-03-01 15:33] LABS: URINE BILIRUBIN NEGATIVE (Negative); URINE BLOOD NEGATIVE (Negative); URINE CLARITY CLEAR; URINE COLOR YELLOW; URINE GLUCOSE-RANDOM* NEGATIVE (Negative); URINE KETONES NEGATIVE (Negative); URINE LEUKOCYTES-REFLEX NEGATIVE (Negative); URINE NITRITE-REFLEX NEGATIVE (Negative); URINE PROTEIN (DIPSTICK) NEGATIVE (Negative); URINE SPECIFIC GRAVITY 1.015 (1.005-1.035); URINE UROBILINOGEN 0.2 E.U./dl (0.2-1.0)
[2019-03-01 19:56] VITALS: BP 110/62
[2019-03-01 20:20] VITALS: BP 116/97
[2019-03-01 23:23] LABS: CALCIUM 9.6 mg/dL (8.5-10.1); CREATININE 1.4 mg/dL (0.7-1.3)
[2019-03-01 23:24] LABS: POTASSIUM 5.7 mmol/L (3.5-5.1)
[2019-03-02] VITALS (7 sets, daily range): BP systolic 103–118; BP diastolic 50–70
[2019-03-02 05:16] LABS: ABSOLUTE NEUTROPHILS 3.9 thou/uL (1.4-8.2); BASOPHILS 0.3 % (0.0-2.0); EOSINOPHILS 0.8 % (0.0-3.0); HEMATOCRIT 35.6 % (42.0-52.0); HEMOGLOBIN 11.2 gm/dL (14.0-18.0); LYMPHOCYTES 27.9 % (24.0-44.0); MCH 27.2 pg (26.0-34.0); MCHC 31.5 g/dL (28.0-37.0); MCV 86.2 fL (80.0-100.0); MONOCYTES 7.2 % (1.0-8.0); PLATELET COUNT 138 thou/uL (150-400); POLYS 63.8 % (36.0-66.0); RBC 4.12 mil/uL (4.50-6.00); WBC 6.2 thou/uL (4.0-11.0)
[2019-03-02 05:28] LABS: ALBUMIN 3.7 g/dL (3.4-5.0); CALCIUM 9.6 mg/dL (8.5-10.1); CREATININE 1.4 mg/dL (0.7-1.3); MAGNESIUM 1.8 mg/dL (1.8-2.4); TOTAL BILIRUBIN 0.4 mg/dL (<0.1-1.0); TOTAL PROTEIN 8.5 g/dL (6.4-8.2)
[2019-03-02 05:41] LABS: POTASSIUM 7.4 mmol/L (3.5-5.1); PROTIME 25.9 Seconds (9.3-11.4)
[2019-03-02 05:49] LABS: INR 2.5
[2019-03-02 06:51] LABS: ALBUMIN 3.3 g/dL (3.4-5.0); CALCIUM 9.2 mg/dL (8.5-10.1); CREATININE 1.4 mg/dL (0.7-1.3); TOTAL BILIRUBIN 0.4 mg/dL (<0.1-1.0); TOTAL PROTEIN 8.4 g/dL (6.4-8.2)
[2019-03-02 06:54] LABS: POTASSIUM 6.9 mmol/L (3.5-5.1)
--- NOTE | 2019-03-02 08:00 | EKG ---
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 : 1945 Requested By: Herb Holbrook Order Number: [id number] MD: Sachin Lockhart Measurements Intervals [place] Rate: 58 P: -29 OR: 204 QRS: 16 QRSD: 96 T: 0 QT: 387 QTc: 381 Interpretive Statements Sinus rhythm Nonspecific ST segment abnormality Compared to ECG 01/03/2019 09:00:27 Atrial fibrillation no longer present Ventricular premature complex(es) no longer present Electronically Signed On 03-02-2019 8:00:12 ACCESS REGISTRAR by Sachin Lockhart [email or web address] <ELECTRONICALLY SIGNED> By: Sachin Lockhart MD, [facility] 03/02/19 0800 1148 1148 Sachin Lockhart MD, [facility] /EPI
--- NOTE | 2019-03-02 08:09 | EKG ---
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 GUEVARA : 1945 Requested By: Clara Horton Order Number: [id number] MD: Sachin Lockhart Measurements Intervals [place] Rate: 84 P: -14 MO: 183 QRS: -16 QRSD: 94 T: 62 QT: 348 QTc: 412 Interpretive Statements Sinus rhythm Minor nonspecific ST segment abnormality Compared to ECG 01/03/2019 09:00:27 No significant change was found Electronically Signed On 03-02-2019 8:08:40 [employer] CAR [employer] by Sachin Lockhart [email or web address] <ELECTRONICALLY SIGNED> By: Sachin Lockhart MD, [facility] 03/02/1908 32 32 Sachin Lockhart MD, [facility] /EPI
[2019-03-02 11:12] LABS: URINE BILIRUBIN NEGATIVE (Negative); URINE BLOOD NEGATIVE (Negative); URINE CLARITY CLEAR; URINE COLOR YELLOW; URINE GLUCOSE-RANDOM* NEGATIVE (Negative); URINE KETONES NEGATIVE (Negative); URINE LEUKOCYTES NEGATIVE (Negative); URINE NITRITE NEGATIVE (Negative); URINE PROTEIN (DIPSTICK) NEGATIVE (Negative); URINE UROBILINOGEN 0.2 E.U./dl (0.2-1.0)
[2019-03-03 04:55] VITALS: BP 100/59
[2019-03-03 06:20] LABS: INR 3.2
[2019-03-03 06:22] LABS: CREATININE 1.2 mg/dL (0.7-1.3); PHOSPHORUS 3.8 mg/dL (2.5-4.9); POTASSIUM 5.5 mmol/L (3.5-5.1)
[2019-03-03 07:45] VITALS: BP 105/68
[2019-03-03 08:47] VITALS: BP 129/86
[2019-03-03 11:50] VITALS: BP 104/60
[2019-03-03 15:34] VITALS: BP 108/64
[2019-03-03 21:04] VITALS: BP 98/65
[2019-03-04 04:47] LABS: PROTIME 31.2 Seconds (9.3-11.4)
[2019-03-04 04:53] LABS: ALBUMIN 2.8 g/dL (3.4-5.0); CALCIUM 8.5 mg/dL (8.5-10.1); CREATININE 0.9 mg/dL (0.7-1.3); PHOSPHORUS 2.9 mg/dL (2.5-4.9)
[2019-03-04 05:05] LABS: POTASSIUM 5.2 mmol/L (3.5-5.1)
[2019-03-04 05:07] VITALS: BP 111/77
[2019-03-04 08:35] VITALS: BP 112/80
[2019-03-04 11:23] VITALS: BP 109/69
[2019-03-04 16:48] VITALS: BP 120/65
[2019-03-04 19:06] VITALS: BP 121/77
[2019-03-05 03:31] LABS: INR 2.2; PROTIME 22.9 Seconds (9.3-11.4)
[2019-03-05 03:42] LABS: CALCIUM 8.4 mg/dL (8.5-10.1); CREATININE 0.7 mg/dL (0.7-1.3); POTASSIUM 4.7 mmol/L (3.5-5.1)
[2019-03-05 04:09] VITALS: BP 125/77
[2019-03-05 07:43] VITALS: BP 125/82
[2019-03-05] MEDS ORDERED: METOPROLOL SUCC50 MG PO (10:54)
[2019-03-05] MEDS ORDERED: PROTONIX40 M1 PO (10:55)
[2019-03-05 11:55] VITALS: BP 124/82
--- NOTE | 2019-03-09 07:32 | HC ---
[facility] [place] [address] CONSULTATION Name: YUMIKO SANTORO Room #: 363-P [facility] IN M.R.#: [id number] Admission: 03/01/19 Attend Phys: Law Tamayo MD Discharge: 03/05/19 Date of : 43 Report #: [id number] THIS REPORT FOR: //name// CC: Maykel Tamayo REASON FOR CONSULTATION: Hyperkalemia. REASON FOR PRESENTATION: Abnormal labs. HISTORY OF PRESENT ILLNESS: This is a 73-year-old with history of strokes in the past with mental issues. He is not able to provide me with the details of the history. His primary inspector materials and processes is his daughter. The patient's daughter tells me that he has history of heart failure, brain tumor, status post resection, wheelchair bound. He was in the hospital back in December and was initiated on some medications including potassium, spironolactone, torsemide. The patient had been progressively getting weaker and weaker. He is wheelchair bound. He was unable to grab things with his hands. The patient visited with his primary care physician and was told that potassium is extremely high and that he needed to come to the Emergency Room to further evaluate. The patient's creatinine was mildly elevated at 1.5 on his presentation, back in December it was in the 0.7 range. PAST MEDICAL HISTORY: Obtained from the medical chart and from the daughter. 1. Hypertension. 2. Status post stroke with right-sided flaccidity. 3. Brain tumor. 4. Hyperlipidemia. 5. AFib. MEDICATIONS: 1. Lisinopril. 2. Spironolactone. 3. Potassium. 4. Torsemide. 5. Diltiazem. 6. Warfarin. ALLERGIES: STATINS. REVIEW OF SYSTEMS: This is obtained from the daughter GENERAL: Significant for weakness. CARDIOVASCULAR: No chest pain or palpitation. NECK: Supple. PULMONARY: No cough or hemoptysis. GASTROINTESTINAL: No nausea, but significantly decreased oral intake. GENITOURINARY: No frequency. No urgency. [facility] [address] [place] [address] CONSULTATION Name: YUMIKO SANTORO Room #: 363[facility] IN M.R.#: [id number] Admission: 03/01/19 Attend Phys: Law Tamayo MD Discharge: 03/05/19 Date of : 43 Report #: [id number] MUSCULOSKELETAL: Significant weakness. NEUROLOGICAL: Right-sided flaccidity. FAMILY HISTORY: Significant for hypertension. PHYSICAL EXAMINATION: VITAL SIGNS: Blood pressure is 112/69, temperature is 36.2. HEAD AND NECK: No jugular venous distention. CHEST: Decreased air entry bilaterally. CARDIOVASCULAR: Regular with no rub. ABDOMEN: Soft, nontender. LOWER EXTREMITIES: No edema. LABORATORY DATA: Reviewed. White blood cell count is 6.2, hemoglobin is 11.2. Sodium is 137, potassium is persistently elevated anywhere from 5.7-7.4, BUN is 73, creatinine is 1.4. ASSESSMENT, IMPRESSION AND PLAN: 1. Acute hyperkalemia. 2. Chronic kidney disease. 3. Hypertension. 4. Diabetes mellitus. 5. This is iatrogenic hyperkalemia due to lisinopril, Aldactone, potassium. 6. This will need to be retreated today. 7. The patient's high BUN and BUN to creatinine ratio is highly suggestive of volume depletion. I will increase rate of his normal saline. 8. Continue to hold Aldactone, potassium, lisinopril. 9. Repeat potassium this afternoon. 10. Continue to monitor his urine output. 11. Not a good candidate for Aldactone anymore. 12. Watch volume status. 13. Rule out other potential causes for his hyperkalemia. <ELECTRONICALLY SIGNED> By: Antonette Guevara MD 03/09/19 0732 0942 1040 Antonette Guevara MD /nt
== END 2019-03-05 15:05 | disposition home health service (06) | DRG 682 ==
LOC: ER 11:06 → 3W 13:43 → EROBS 13:43 → 3W 14:04
PROVIDERS: Emergency Medicine; Hospitalist; Nurse Practitioner; Nurse Practitioner Family; ADMIT Hospitalist
DX: N17.0 Acute kidney failure with tubular necrosis (principal); I50.33 Acute on chronic diastolic (congestive) heart failure; I69.351 Hemiplegia and hemiparesis following cerebral infarction affecting right dominant side; E87.5 Hyperkalemia; E78.5 Hyperlipidemia, unspecified; I48.0 Paroxysmal atrial fibrillation; E04.1 Nontoxic single thyroid nodule; N40.0 Benign prostatic hyperplasia without lower urinary tract symptoms; E11.22 Type 2 diabetes mellitus with diabetic chronic kidney disease; I13.10 Hypertensive heart and chronic kidney disease without heart failure, with stage 1 through stage 4 chronic kidney disease, or unspecified chronic kidney disease; N18.9 Chronic kidney disease, unspecified; R53.81 Other malaise; E86.0 Dehydration; T50.0X5A Adverse effect of mineralocorticoids and their antagonists, initial encounter; T46.4X5A Adverse effect of angiotensin-converting-enzyme inhibitors, initial encounter; Z99.3 Dependence on wheelchair; Z85.841 Personal history of malignant neoplasm of brain; Y92.89 Other specified places as the place of occurrence of the external cause; Z79.01 Long term (current) use of anticoagulants; Z79.899 Other long term (current) drug therapy; Z88.8 Allergy status to other drugs, medicaments and biological substances; Z95.5 Presence of coronary angioplasty implant and graft; Z84.1 Family history of disorders of kidney and ureter; Z87.442 Personal history of urinary calculi; N17.9 Acute kidney failure, unspecified
CPT/HCPCS: 10879